=== PATIENT | female | born 1950 | race Caucasian/White ===

== ENCOUNTER → 2020-06-09 09:45 | Outpatient (BNVA) | payer MEDICARE, SELFPAY | PROVIDERS: Visit Provider Family Medicine | DX: E11.9 Type 2 diabetes mellitus without complications (principal); I10 Essential (primary) hypertension; E78.5 Hyperlipidemia, unspecified; E78.2 Mixed hyperlipidemia; Z71.89 Other specified counseling; Z86.010 Personal history of colon polyps; Z98.890 Other specified postprocedural states | CPT/HCPCS: 80053; 80061; 83036 ==

== ENCOUNTER → 2021-02-21 10:05 | Outpatient (BNVA) | payer MEDICARE, SELFPAY | PROVIDERS: Visit Provider Family Medicine | DX: R73.03 Prediabetes (principal); I10 Essential (primary) hypertension | CPT/HCPCS: 80053; 83036; 85025 ==

== ENCOUNTER → 2021-04-24 08:21 | Outpatient (BNVA) | payer MEDICARE, SELFPAY | PROVIDERS: Visit Provider Surgery | DX: Z20.822 Contact with and (suspected) exposure to COVID-19 (principal); Z86.010 Personal history of colon polyps | CPT/HCPCS: 87635 ==

== ENCOUNTER 2021-04-28 05:55 | Day surgery (SDC) | payer MEDICARE, SELFPAY ==
[2021-04-26 10:05] VITALS: BMI 26.6
[2021-04-28 06:13] VITALS: BP 146/102; PULSE 82; RESP 18; TEMP 36.2; O2SAT 95
--- NOTE | 2021-04-28 06:20 | P.HP_ITS ---
Same Day Surgery H&P Indication for Procedure/HPI DATE OF PROCEDURE: April 28, 2021 CHIEF COMPLAINT/INDICATIONFOR SURGICAL PROCEDURE: I had polyps before PREOP DIAGNOSIS: History of colon polyps PLANNED PROCEDURE: Operation Date: 04/28/21 07:15 Proposed Procedures p Colonoscopy 28984 Z86.010(Not Applicable) - Juan Diego Lozano MD 02/23/2021 This is a pleasant 70 years old female patient presents to my practice with quite complicated history of colon polyps that required colon resection per her description. She reports that she had laparoscopic hemicolectomy in [place] back in 2020 and 6 inches of the colon were removed. And showed no cancer. Fortunately I do not have any operative report or pathology records or previous colonoscopies on the patient. Patient is not sure which part of the colon was removed she thinks it was the left side. Patient also reports vague abdominal pain being colicky in nature on both sides of the abdomen for the past month or so and she describes it as rocks inside the intestine . Patient comes today escorted by her and she said that the pain is mostly postprandial and is not being referred. What provokes it and not eating makes it better. He denies any change in bowel habits and no blood in stool and no history of colon cancer. Her describes that she has been very stressed because of family issues over the past month and that coinciding with her pain. 04/28/2021 Patient comes today for surveillance colonoscopy. 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 Pathology later on showed tubulovillous adenoma of the cecum with free margins and lymph nodes no involvement 3 in number and additional segment of small bowel without abnormality. Apparently the patient did get a CT scan of the abdomen pelvis due to insurance logistics ROS All systems have been reviewed negative except as per the above or per problem list Medications/Allergies* Home Medications Medication Instructions Recorded Confirmed Type aspirin 81 mg tablet,delayed 81 mg PO DAILY 02/23/21 04/26/21 History release (Adult Aspirin Regimen) Allergies/Adverse Reactions Allergy/AdvReac Type Severity Reaction Status Date / Time codeine Allergy nausea Verified 04/28/21 06:24 Penicillins Allergy unk Verified 04/28/21 06:24 Pertinent History/Comorbid Conditions* Medical History (Updated 02/21/21 @ 13:22 by Miroslava Luz MD) Hx of colonic polyp Next colonoscopy 2023 per pt report Hyperlipidemia Hypertension Pre-diabetes Surgical History (Updated 06/09/20 @ 09:30 by Miroslava Luz MD) History of rectal surgery Colonoscopy due 2023 Family History (Updated 06/09/20 @ 09:05 by Rosalba Thomas CMA) Diabetes Mother Alzheimer disease Mother Cancer Father colon cancer Grandmother breast cancer Social History Smoking and tobacco status: never smoked Alcohol intake: never Pertinent Exam Findings alert, oriented x 3, regular rate & rhythm and procedure specific exam findings (Abdominal examination nontender nondistended soft) Recommendations Surgery/Procedure today (Colonoscopy with possible biopsy) Coding Level of Care Code Acute Care Transition Manager for Rivas Mcintosh
[2021-04-28] MEDS: sodium chloride 0.9% 1,000 ML 30 ML IV (06:26)
--- NOTE | 2021-04-28 06:59 | ANES.PREANE2 ---
Pre-Anesthetic Assessment Height/Weight: Height 1.73 m Weight 79.379 kg Temp Pulse Resp BP Pulse Ox 97.2 F L 82 18 146/102 95 04/28/21 06:13 04/28/21 06:13 04/28/21 06:13 04/28/21 06:13 04/28/21 06:13 Preop Diagnosis: History of colon polyps Operation Date: 04/28/21 07:15 Proposed Procedures p Colonoscopy 97608 Z86.010(Not Applicable) - Juan Diego Lozano MD Familial anesthetic complications: none Was Beta Ketty taken within 24 hours: N/A Was Clonidine taken within 24 hours: N/A Last intake: Intake Last Liquid Date 04/27/21 Last Liquid Time 20:00 Last Solid Date 04/26/21 Last Solid Time 18:00 Social No alcohol and No tobacco Exam alert, oriented x 3, clear to auscultation bilaterally and regular rate & rhythm Airway Submandibular: within normal limits Cervical ROM: within normal limits Mallampati: Class II Dentition: full Pulmonary None reported CV/HEM Hypertension None reported Hepatic None reported GI Gastroesophageal Reflux Disease (controlled) Metabolic Diabetes Mellitus and Hyperlipidemia [facility] [place] None reported Neuropsych None reported Anesthetic Plan ASA status: 2 Anesthesia: MAC Medications/Allergies Home Medications Medication Instructions Recorded Confirmed Last Taken Type alcohol swabs 1 pad TOPICAL TID PRN 30 Days #100 06/09/20 04/26/21 04/26/21 Rx ea blood sugar diagnostic (Blood #50 ea 06/09/20 04/26/21 04/26/21 Rx Glucose Test) blood-glucose meter (Blood Glucose #1 ea 06/09/20 04/26/21 04/26/21 Rx Monitoring) lancets #100 ea 06/09/20 04/26/21 04/26/21 Rx lisinopril 20 mg tablet 20 mg PO DAILY 90 Days #90 tab 02/21/21 04/26/21 04/26/21 Rx metformin 500 mg tablet 500 mg PO DAILY 90 Days #90 tab 02/21/21 04/26/21 04/26/21 Rx simvastatin 20 mg tablet 20 mg PO DAILY 90 Days #90 tab 02/21/21 04/26/21 04/26/21 Rx aspirin 81 mg tablet,delayed 81 mg PO DAILY 02/23/21 04/26/21 04/26/21 History release (Adult Aspirin Regimen) Allergies Allergy/AdvReac Type Severity Reaction Status Date / Time codeine Allergy nausea Verified 04/28/21 06:24 Penicillins Allergy unk Verified 04/28/21 06:24 Current Medications Generic Name Dose Route Start Last Admin Trade Name Freq PRN Reason Stop Dose Admin Sodium Chloride 1,000 mls @ 30 mls/hr 04/28/21 06:15 04/28/21 06:26 Sodium Chloride 0.9% IV 04/29/21 06:14 30 mls/hr .Q24H JUMA Administration PFSH Anesthesia Medical History Hx of colonic polyp Next colonoscopy 2023 per pt report Hyperlipidemia Hypertension Pre-diabetes Surgical History History of rectal surgery Colonoscopy due 2023 Family History Mother Alzheimer disease Diabetes Father Cancer colon cancer Grandmother Cancer breast cancer Social History Smoking and tobacco status: never smoked Alcohol intake: never Data Anesthesia Cardiac Studies: No Data to Display
[2021-04-28 07:44] VITALS: BP 146/76; PULSE 86; RESP 16; TEMP 36.2; O2SAT 94
--- NOTE | 2021-04-28 07:46 | ANE.PACU2 ---
Inpatient post-anesthesia follow up: Airway intact: Yes Vital signs: Temperature 97.2 F Pulse Rate 86 Respiratory Rate 16 Blood Pressure 146/76 Pulse Oximetry 94 Oxygen Delivery Me thod Room Air Oxygen Flow Rate Fraction of Inspir ed Oxygen Hydration adequate: Yes Nausea and vomiting: No Pain level: 1 Mental status: Baseline
[2021-04-28 07:56] VITALS: BP 145/95; PULSE 81; RESP 18; O2SAT 94
== END 2021-04-28 08:02 | disposition home or self-care (01) ==
PROVIDERS: PCP Family Medicine; Visit Provider Surgery
PROC: 0DJD8ZZ Inspection of Lower Intestinal Tract, Via Natural or Artificial Opening Endoscopic (ICD-10-PCS; CPT 45378; principal; 2021-04-28 07:15)
DX: Z12.11 Encounter for screening for malignant neoplasm of colon (principal); Z86.010 Personal history of colon polyps; K57.30 Diverticulosis of large intestine without perforation or abscess without bleeding; E78.5 Hyperlipidemia, unspecified; I10 Essential (primary) hypertension; K21.9 Gastro-esophageal reflux disease without esophagitis; Z79.84 Long term (current) use of oral hypoglycemic drugs
CPT/HCPCS: 45378; G0121; J2704; J7030

== ENCOUNTER → 2021-05-17 13:32 | Outpatient (BNVA) | payer BC, MEDICARE, SELFPAY | PROVIDERS: PCP Family Medicine; Visit Provider Surgery | DX: Z09 Encounter for follow-up examination after completed treatment for conditions other than malignant neoplasm (principal); K57.31 Diverticulosis of large intestine without perforation or abscess with bleeding; R10.84 Generalized abdominal pain | CPT/HCPCS: 99213 ==

== ENCOUNTER 2021-06-06 08:21 | Outpatient (CLI) | payer BC, MEDICARE, SELFPAY ==
--- NOTE | 2021-06-06 08:31 | MM_ITS ---
WS: [id number] SCREENING DIGITAL BREAST TOMOSYNTHESIS MAMMOGRAM WITH CAD HISTORY: SCREENING COMPARISON: None available. Bilateral CC and MLO with tomosynthesis and synthetic mammography submitted. Computer aided detection analyzed. Breast composition: There are scattered areas of fibroglandular density. Slightly lobulated mass post erior LEFT breast in the upper outer quadrant. Mass is close to the 2 to 3:00 position. Mass measures 7 mm x 6 mm and seen on image 39/76 on the CC projection and 32/85 on the MLO projection. MM/[place] [id number] IMPRESSION: BI-RADS: 0-Incomplete: Need additional imaging evaluation FOLLOW UP: Need Additional Imaging Recommendation: Limited LEFT breast ultrasound upper outer quadrant LEFT breast posterior.
== END 2021-06-06 08:22 | disposition home or self-care (01) ==
LOC: RADSHAW 08:24
PROVIDERS: PCP Family Medicine; Visit Provider Family Medicine
DX: Z12.31 Encounter for screening mammogram for malignant neoplasm of breast (principal)
CPT/HCPCS: 77063; 77067

== ENCOUNTER 2021-06-29 08:18 | Outpatient (CLI) | payer BC, MEDICARE, SELFPAY ==
--- NOTE | 2021-06-29 | US_ITS ---
WS: [id number] ULTRASOUND LEFT BREAST HISTORY: ABNORMAL MAMMO COMPARISON: 06/06/2021 mammogram TECHNIQUE: 2-D and Doppler. 6 mm nodule seen in the lateral LEFT breast near 3:00 is not evident by ultrasound. This may be a col lapsed cyst or lymph node which is difficult to visualize. There is no mass or shadowing. US/US breast LT limited* [id number] IMPRESSION: BI-RADS: 3-Probably Benign FOLLOW-UP: 6 Month Follow-up Recommend 6 month follow-up LEFT mammogram and ultrasound. I did discuss this i n detail with the patient.
== END 2021-06-29 08:19 | disposition home or self-care (01) ==
LOC: RAD 08:23
PROVIDERS: PCP Family Medicine; Visit Provider Family Medicine
DX: R92.8 Other abnormal and inconclusive findings on diagnostic imaging of breast (principal)
CPT/HCPCS: 76642

== ENCOUNTER → 2021-12-13 10:49 | Outpatient (BNVA) | payer BC, MEDICARE, SELFPAY | PROVIDERS: PCP Family Medicine; Visit Provider Family Medicine | DX: R92.8 Other abnormal and inconclusive findings on diagnostic imaging of breast (principal); E78.5 Hyperlipidemia, unspecified; R73.03 Prediabetes; E78.2 Mixed hyperlipidemia; N18.9 Chronic kidney disease, unspecified; J06.9 Acute upper respiratory infection, unspecified; I12.9 Hypertensive chronic kidney disease with stage 1 through stage 4 chronic kidney disease, or unspecified chronic kidney disease | CPT/HCPCS: 80053; 80061; 83036 ==

== ENCOUNTER 2022-01-08 10:40 | Outpatient (CLI) | payer BC, MEDICARE, SELFPAY ==
--- NOTE | 2022-01-08 10:47 | MM_ITS ---
WS: [id number] LEFT DIGITAL TOMOSYNTHESIS MAMMOGRAPHY WITH CAD. LEFT breast ultrasound, limited HISTORY: 6 month follow-up. COMPARISON: 06/06/2021 and 06/29/2021 Technique: CC, MLO and ML views. Spot compression LEFT CC and MLO. Breast composition: There are scattered areas of fibroglandular density. 6 x 7 mm nodule persists in the lateral LEFT breast without increase in size. Will reattempt ultrasound evaluation. LEFT breast ultrasound, limited. Nodule in the LEFT breast is still not identified by ultrasound. There has been no increase in size o f the soft tissue nodule by mammography. MM/[place] [id number] IMPRESSION: BI-RADS: 3-Probably Benign FOLLOW UP: 6 Month Follow-up Patient to return in April 2022 for bilateral mammogram. Additional evaluation of this LEFT breast nodule can be performed at that time.
== END 2022-01-08 10:41 | disposition home or self-care (01) ==
LOC: RAD 10:41
PROVIDERS: PCP Family Medicine; Visit Provider Family Medicine
DX: R92.8 Other abnormal and inconclusive findings on diagnostic imaging of breast (principal)
CPT/HCPCS: 76642; 77061; G0279

== ENCOUNTER 2022-07-17 10:05 | Outpatient (CLI) | payer MEDICARE, BC, SELFPAY ==
--- NOTE | 2022-07-17 10:39 | MM_ITS ---
WS: [id number] DIAGNOSTIC BILATERAL DIGITAL BREAST TOMOSYNTHESIS MAMMOGRAPHY WITH CAD LEFT breast ultrasound, limited HISTORY: Follow-up LEFT breast mass. COMPARISON: 12/31/2021, 06/06/2021 TECHNIQUE: Bilateral craniocaudad, mediolateral oblique, and mediolateral views are submitted with to mosynthesis and SM. Spot compression LEFT CC and MLO. Computer aided detection utilized. Breast composition: There are scattered areas of fibroglandular density. The mass measuring 7 x 5 mm in the LEFT breast at a middle depth at 1-2 o'clock is reidentified. Benign calcification RIGHT breas t. LEFT breast ultrasound, limited. Well-circumscribed hypoechoic nodule in the LEFT breast at 2:00, 3 cm from the nipple. This mass margarito ures 6 x 5 x 6 mm and corresponds in size and location to the mammographic abnormality. This has been present on several prior mammograms without increase in size. MM/[place] [id number] IMPRESSION: BI-RADS: 3-Probably Benign FOLLOW UP: 6 Month Follow-up Recommendation: Follow-up LEFT breast ultrasound in 6 months to reevaluate the mass at 2:00. This mass has been present since 06/06/2021 without increase in si ze therefore ultrasound follow-up recommended. May be a benign lymph node.
== END 2022-07-17 10:06 | disposition home or self-care (01) ==
PROVIDERS: PCP Family Medicine; Visit Provider Family Medicine
DX: R92.8 Other abnormal and inconclusive findings on diagnostic imaging of breast (principal); N63.21 Unspecified lump in the left breast, upper outer quadrant
CPT/HCPCS: 76642; 77062; G0279

== ENCOUNTER → 2022-10-05 09:23 | Outpatient (BNVA) | payer MEDICARE, BC, SELFPAY | PROVIDERS: PCP Family Medicine; Visit Provider Nurse Practitioner Family | DX: R69 Illness, unspecified (principal); Z20.822 Contact with and (suspected) exposure to COVID-19 | CPT/HCPCS: 81000; 87086; 87400; 87426 ==

== ENCOUNTER → 2022-12-26 09:01 | Outpatient (BNVA) | payer MEDICARE, BC, SELFPAY | PROVIDERS: PCP Family Medicine; Visit Provider Family Medicine | DX: R53.83 Other fatigue (principal); I10 Essential (primary) hypertension; E78.2 Mixed hyperlipidemia; R73.03 Prediabetes | CPT/HCPCS: 80053; 80061; 82607; 82652; 83036; 84443; 85025 ==

== ENCOUNTER 2023-01-15 12:35 | Outpatient (CLI) | payer MEDICARE, BC, SELFPAY ==
--- NOTE | 2023-01-15 13:15 | US_ITS ---
WS: [id number] ULTRASOUND LEFT BREAST HISTORY: Follow-up mass at 2:00. COMPARISON: 07/17/2022. Mammogram 06/06/2021, 07/17/2022 TECHNIQUE: 2-D and Doppler. Reidentified is a hypoechoic nodule measuring 6 x 4 x 5 mm in the LEFT breast at 2:00, 3 cm from the nipple. This does correspond to the nodule seen on the recent mammogram in the upper outer quadrant. No increase in size. Benign in appearance. IMPRESSION: US/US breast LT limited* [id number] BI-RADS: 3-Probably Benign FOLLOW-UP: 6 Month Follow-up Patient to return in July 2023 for annual mammogram. Diagnostic LEFT breast ult rasound may also be necessary at that time if there has been any significant ch rodriguez.
== END 2023-01-15 12:36 | disposition home or self-care (01) ==
PROVIDERS: PCP Family Medicine; Visit Provider Family Medicine
DX: R92.8 Other abnormal and inconclusive findings on diagnostic imaging of breast (principal); Z12.31 Encounter for screening mammogram for malignant neoplasm of breast
CPT/HCPCS: 76642

== ENCOUNTER → 2023-06-26 08:37 | Outpatient (BNVA) | payer BC, SELFPAY | PROVIDERS: PCP Family Medicine; Visit Provider Family Medicine | DX: E78.5 Hyperlipidemia, unspecified (principal); R73.03 Prediabetes; I10 Essential (primary) hypertension; E78.2 Mixed hyperlipidemia; N18.31 Chronic kidney disease, stage 3a; Z12.31 Encounter for screening mammogram for malignant neoplasm of breast; R92.8 Other abnormal and inconclusive findings on diagnostic imaging of breast | CPT/HCPCS: 80053; 83036 ==

== ENCOUNTER 2023-07-19 07:28 | Outpatient (CLI) | payer BC, MEDICARE, SELFPAY ==
--- NOTE | 2023-07-19 08:30 | MM_ITS ---
WS: [email or web address] BILATERAL SCREENING DIGITAL TOMOSYNTHESIS MAMMOGRAM WITH CAD HISTORY: Z12.39 - Encounter for other screening for malignant neop... COMPARISON: 07/17/2022, 06/06/2021 and 01/08/2022 Bilateral CC and MLO views with tomosynthesis and synthetic mammography submitted. Computer aided det ection analyzed. Breast composition: There are scattered areas of fibroglandular density. No suspicious masses, microc alcifications or architectural distortion. Benign calcification in the central RIGHT breast. 8 mm asy mmetry in the lateral LEFT breast above the nipple line is stable. MM/[place] [id number] IMPRESSION: BI-RADS: 2-Benign FOLLOW UP: 1 Year Follow-up
== END 2023-07-19 07:29 | disposition home or self-care (01) ==
LOC: RAD 07:35
PROVIDERS: PCP Family Medicine; Visit Provider Family Medicine
DX: Z12.31 Encounter for screening mammogram for malignant neoplasm of breast (principal); R92.323 Mammographic fibroglandular density, bilateral breasts; N64.89 Other specified disorders of breast; R92.1 Mammographic calcification found on diagnostic imaging of breast
CPT/HCPCS: 77063; 77067

== ENCOUNTER 2024-01-10 12:26 | Outpatient (CLI) | payer MEDICARE, BC, SELFPAY ==
--- NOTE | 2024-01-10 13:30 | USCV_ITS ---
Elina Gamino Age: 73 Gender: F : 1950 Exam Date: 01/10/2024 13:28 Ordering Phys: Miroslava Luz MD Technologist: MARILYN Exam Location: [facility] [place] Indication: Rt knee pain HISTORY: Lower extremity pain. PROCEDURES: Venous duplex imaging was performed in only the right lower extremity. The following venous structures were evaluated: common femoral vein, profunda vein, proximal portion of the greater saphenous vein, superficial femoral vein, and the popliteal vein. In addition, the posterior tibial and peroneal trunk were evaluated. Serial compression, augmentation maneuvers, and spectral Doppler flow evaluation were performed. FINDINGS: No evidence of DVT seen in any vessel visualized at this time. CONCLUSIONS No evidence of right lower extremity DVT. Flo Hudson MD (Electronically Signed) Final Date: 10 January 2024 14:53 S
== END 2024-01-10 12:27 | disposition home or self-care (01) ==
LOC: RAD 12:27
PROVIDERS: PCP Family Medicine; Visit Provider Family Medicine
DX: M79.661 Pain in right lower leg (principal); M79.89 Other specified soft tissue disorders; U07.1 COVID-19
CPT/HCPCS: 93971

== ENCOUNTER → 2024-02-13 09:17 | Outpatient (BNVA) | payer MEDICARE, BC, SELFPAY | PROVIDERS: PCP Family Medicine; Visit Provider Family Medicine | DX: N18.31 Chronic kidney disease, stage 3a (principal); E78.2 Mixed hyperlipidemia; R73.03 Prediabetes | CPT/HCPCS: 80053; 80061; 83036 ==

== ENCOUNTER → 2024-08-12 09:50 | Outpatient (BNVA) | payer MEDICARE, BC, SELFPAY | PROVIDERS: PCP Family Medicine; Visit Provider Family Medicine | DX: N18.31 Chronic kidney disease, stage 3a (principal); E11.9 Type 2 diabetes mellitus without complications; I10 Essential (primary) hypertension | CPT/HCPCS: 80048; 80061 ==

== ENCOUNTER 2024-08-13 10:39 | Outpatient (CLI) | payer MEDICARE, BC, SELFPAY ==
--- NOTE | 2024-08-13 10:40 | MM_ITS ---
WS: [email or web address] BILATERAL 3D TOMOSYNTHESIS DIGITAL SCREENING MAMMOGRAPHY WITH CAD CLINICAL INFORMATION: Z12.39 - Encounter for other screening for malignant neop... HISTORY: Screening mammogram. No current complaints. COMPARISON: 2023 TECHNIQUE: Bilateral CC and MLO views. FINDINGS: Scattered fibroglandular densities bilaterally. No suspicious focal mass, asymmetry, calcifications, or architectural distortion. No evidence of malignancy. Dystrophic calcification RIGHT breast. A few incidental punctate calcifications. Stable 8 mm focal asymmetric density upper outer LEFT breast unchanged since 2021 MM/MM scr tomosynthesis [id number] IMPRESSION: DENSITY: There are scattered areas of fibroglandular density. BI-RADS: 2 - Benign. FOLLOW UP: 1 Year Follow-up Recommend return to annual screening mammography.
== END 2024-08-13 10:40 | disposition home or self-care (01) ==
PROVIDERS: PCP Family Medicine; Visit Provider Family Medicine
DX: Z12.31 Encounter for screening mammogram for malignant neoplasm of breast (principal); R92.323 Mammographic fibroglandular density, bilateral breasts; R92.1 Mammographic calcification found on diagnostic imaging of breast; N64.89 Other specified disorders of breast
CPT/HCPCS: 77063; 77067

== ENCOUNTER → 2024-08-18 08:27 | Outpatient (BNVA) | payer MEDICARE, BC, SELFPAY | PROVIDERS: PCP Family Medicine; Referring Provider Family Medicine; Visit Provider Family Medicine | DX: E11.9 Type 2 diabetes mellitus without complications (principal) | CPT/HCPCS: 83036 ==

== ENCOUNTER → 2024-08-24 09:34 | Outpatient (BNVA) | payer MEDICARE, BC, SELFPAY | PROVIDERS: PCP Family Medicine; Visit Provider Specialist | DX: M75.01 Adhesive capsulitis of right shoulder (principal) | CPT/HCPCS: 73030; 99204 ==

== ENCOUNTER 2024-10-28 07:27 | Outpatient (CLI) | payer MEDICARE, BC, SELFPAY ==
--- NOTE | 2024-10-28 08:00 | MR_ITS ---
WS: [email or web address] MRI RIGHT SHOULDER NONCONTRAST TECHNIQUE: Sagittal T2, coronal T1, T2 and proton density imaging. Axial gradient PDE imaging. CLINICAL INFORMATION: frozen shoulder COMPARISON: None. FINDINGS: Advanced degenerative arthritis AC joint with fluid and edema. Marked narrowing of the subacromial space. Subacromial spurring. High-grade chronic appearing tear of the supraspinatus no normal fibers visualized. This appears retracted to the glenohumeral joint. Chronic thinning with high-grade tear of the infraspinatus. Normal teres minor. Tendinopathy subscapularis tendon which appears intact. Biceps tendon appears intact in the bicipital groove. Tendinopathy intra-articular biceps tendon which appears intact. Moderate degenerative narrowing of the glenohumeral articulation. Visually small joint capsule can be seen with adhesive capsulitis in the appropriate clinical setting. MR/MR shoulder RT wo con* [id number] IMPRESSION: 1. Advanced degenerative arthritis AC joint with marked narrowing of the subac romial space and downsloping acromion. Associated fluid and edema. 2. High-grade chronic appearing tears of the supraspinatus and infraspinatus. 3. Subscapularis tendon appears intact with tendinopathy. 4. Tendinopathy intra-articular biceps tendon. 5. Visually small joint capsule can be seen with adhesive capsulitis in the ap propriate clinical setting.
== END 2024-10-28 07:28 | disposition home or self-care (01) ==
LOC: RAD 07:28
PROVIDERS: PCP Family Medicine; Visit Provider Specialist
DX: M75.01 Adhesive capsulitis of right shoulder (principal)
CPT/HCPCS: 73221

== ENCOUNTER → 2024-11-25 14:48 | Outpatient (BNVA) | payer MEDICARE, BC, SELFPAY | PROVIDERS: PCP Family Medicine; Visit Provider Specialist | DX: M75.01 Adhesive capsulitis of right shoulder (principal) | CPT/HCPCS: 20610; 99214; J1100; J2795; J3301; J9999 ==

== ENCOUNTER 2024-12-09 07:56 | Outpatient (RCR) | payer MEDICARE, BC, SELFPAY | END 2024-12-11 23:59 | disposition home or self-care (01) | LOC: MPT 07:56 | PROVIDERS: Visit Provider Specialist | DX: M75.01 Adhesive capsulitis of right shoulder (principal) | CPT/HCPCS: 97110; 97140; 97161 ==

== ENCOUNTER 2025-01-05 07:49 | Outpatient (RCR) | payer MEDICARE, BC, SELFPAY | END 2025-01-10 23:59 | disposition home or self-care (01) | LOC: MPT 07:49 | PROVIDERS: Visit Provider Specialist | DX: M75.01 Adhesive capsulitis of right shoulder (principal) | CPT/HCPCS: 97110; 97140; 97530 ==

== ENCOUNTER 2025-01-19 08:38 | Outpatient (RCR) | payer MEDICARE, BC, SELFPAY | END 2025-02-10 23:59 | disposition home or self-care (01) | LOC: MPT 08:38 | PROVIDERS: PCP Family Medicine; Visit Provider Specialist | DX: M75.01 Adhesive capsulitis of right shoulder (principal) | CPT/HCPCS: 97110; 97112; 97140; 97530 ==